=== PATIENT | male | born 1950 | race Caucasian/White ===

== ENCOUNTER → 2016-04-20 | Outpatient (CLI) | payer OTHER ==
--- NOTE | 2016-04-21 10:14 | ECHOF ---
Referral Reason:R07.89 Atypical Chest Pain MEASUREMENTS -------- HEIGHT: 170.2 cm WEIGHT: 117.9 kg BP: RVIDd: 2.6 cm (< 3.3) IVSd: 1.1 cm (0.6 - 1.1) LVIDd: 3.9 cm (3.9 - 5.3) LVPWd: 1.1 cm (0.6 - 1.1) IVSs: 1.2 cm LVIDs: 3.7 cm LVPWs: 1.7 cm Ao Diam: 3.3 cm (2.0 - 3.7) AV Cusp: 1.9 cm (1.5 - 2.6) LA Diam: 3.8 cm (2.7 - 3.8) MV EXCURSION: 15.249 mm (> 18.000) MV EF SLOPE: 53 mm/s (70 - 150) EPSS: 0.4 cm MV E Diony: 0.43 m/s MV DecT: 291 ms MV A Diony: 0.93 m/s MV E/A Ratio: 0.46 RAP: 5.00 mmHg RVSP: 34.52 mmHg FINDINGS -------- Sinus rhythm. This was a technically adequate study. There is mild concentric left ventricular hypertrophy. Overall left ventricular systolic function is low-normal with, an EF between 50 - 55 %. The right ventricle is normal in size. The right atrial size is normal. There is mild aortic valve sclerosis. There is no evidence of aortic regurgitation. Mild mitral annular calcification present. Mild mitral regurgitation is present. Mild tricuspid regurgitation present. There is no evidence of pulmonary hypertension. The right ventricular systolic pressure, as measured by Doppler, is 34.52mmHg. There is no pulmonic regurgitation present. There is no pericardial effusion. CONCLUSIONS -------- 1. There is mild concentric left ventricular hypertrophy. 2. There is no pericardial effusion. 3. Overall left ventricular systolic function is low-normal with, an EF between 50 - 55 %. 4. There is mild aortic valve sclerosis. 5. Mild mitral annular calcification present. 6. Mild mitral regurgitation is present. 7. Mild tricuspid regurgitation present. 8. There is no evidence of pulmonary hypertension. 9. The right ventricular systolic pressure, as measured by Doppler, is 34.52mmHg. 10. There is no pulmonic regurgitation present. MEMBERSHIP MANAGER: Sayda Vargas RDCS
== END | disposition home or self-care (01) ==
LOC: RADECHMAIN 14:26
PROVIDERS: ATTEND Family Medicine
DX: I08.3 Combined rheumatic disorders of mitral, aortic and tricuspid valves (principal)
CPT/HCPCS: 93306

== ENCOUNTER → 2017-05-12 | Outpatient (CLI) | payer OTHER ==
--- NOTE | 2017-05-12 12:57 | ECHOF ---
Referral Reason:R07.89 Atypical chest pain MEASUREMENTS -------- HEIGHT: 165.1 cm WEIGHT: 122.0 kg BP: RVIDd: 3.3 cm (< 3.3) IVSd: 1.4 cm (0.6 - 1.1) LVIDd: 4.2 cm (3.9 - 5.3) LVPWd: 1.7 cm (0.6 - 1.1) IVSs: 1.6 cm LVIDs: 2.8 cm LVPWs: 1.3 cm LAESV Index (A-L): 15.38 ml/m Ao Diam: 3.6 cm (2.0 - 3.7) AV Cusp: 2.1 cm (1.5 - 2.6) LA Diam: 4.0 cm (2.7 - 3.8) MV EXCURSION: 11.323 mm (> 18.000) MV EF SLOPE: 60 mm/s (70 - 150) EPSS: 0.6 cm MV E Diony: 0.38 m/s MV DecT: 278 ms MV A Diony: 0.90 m/s MV E/A Ratio: 0.43 RAP: 5.00 mmHg RVSP: 11.07 mmHg FINDINGS -------- Sinus rhythm. Morbid Obesity The left ventricular size is normal. There is moderate concentric left ventricular hypertrophy. O verall left ventricular systolic function is low-normal with, an EF between 50 - 55 %. The right ventricle is mildly enlarged. Normal LA size by volume 22+/-6 ml/m2. The right atrial size is normal. There is mild aortic valve sclerosis. Trace to mild aortic regurgitation. Mild mitral regurgitation is present. Mild tricuspid regurgitation present. There is no evidence of pulmonary hypertension. The right v entricular systolic pressure, as measured by Doppler, is 11.07mmHg. Trace/mild (physiologic) pulmonic regurgitation. The aortic root size is normal. Echo free space represents a pericardial fat pad. CONCLUSIONS -------- 1. The left ventricular size is normal. 2. There is moderate concentric left ventricular hypertrophy. 3. Overall left ventricular systolic function is low-normal with, an EF between 50 - 55 %. 4. There is mild aortic valve sclerosis. 5. Trace to mild aortic regurgitation. 6. Mild mitral regurgitation is present. 7. Mild tricuspid regurgitation present. 8. There is no evidence of pulmonary hypertension. 9. The right ventricular systolic pressure, as measured by Doppler, is 11.07mmHg. 10. Trace/mild (physiologic) pulmonic regurgitation. 11. The aortic root size is normal. 12. Echo free space represents a pericardial fat pad. MENHADEN VESSEL PILOT: Sayda Vargas RDCS
--- NOTE | 2017-05-12 13:55 | EST ---
EXERCISE STRESS DATE OF SERVICE: 05/12/2017 AGE: 66 SEX: Male HT: WT: 269 PROTOCOL: Hernesto. STAGE: III DURATION OF EXERCISE: 7 minutes HEART RATE REST: 86 BLOOD PRESSURE REST: 144/84 MAXIMUM HEART RATE ACHIEVED: 138 MAXIMUM BLOOD PRESSURE: 215/86. 85% MPHR: 133 100% MPHR: 156. METS: 8.5 INDICATIONS: Chest pain. CLINICAL INFORMATION: STRESS DATA: Pretesting physical examination showed a heart rate of 86, pressure is 144/84 mmHg. Baseline EKG showed sinus mechanism. The patient exercised on the treadmill according to Hernesto protocol for a total of 7 minute and achieved 8.5 METs. Max heart rate was 138, which is about 88% of maximum predicted heart rate. Maximum blood pressure was 215/86 mmHg. Clinically the patient did not have any symptoms and the EKG did not show any significant ST or T-wave abnormalities consistent with ischemia. CONCLUSION: 1. Good exercise capacity. 2. Normal EKG response to exercise. MMODL / IJN: [id number] /
== END | disposition home or self-care (01) ==
LOC: RADNMMAIN 08:59
PROVIDERS: ATTEND Family Medicine
DX: R07.89 Other chest pain (principal)
CPT/HCPCS: 93017; 93306

== ENCOUNTER → 2017-12-21 | Outpatient (CLI) | payer MEDICARE, OTHER ==
--- NOTE | 2017-12-22 07:10 | US ---
EXAMINATION TYPE: US thyroid st tissue head/neck DATE OF EXAM: 12/21/2017 COMPARISON: MRI cervical spine October 29, 2012 CLINICAL HISTORY: R22.1 Nodule left neck. Lump left neck for 2 weeks. Scanned left neck within patient's area of concern, multiple lymph nodes noted with largest = 2.0 x 0 .5 x 0.5cm Benign-appearing lymph nodes are seen at palpable abnormality in the left neck which correlates with 2013 MRI. No suspicious solid or cystic mass or worrisome fluid collection is identified on the image s saved. IMPRESSION: As above
== END | disposition home or self-care (01) ==
LOC: RADUSMAIN 15:52
PROVIDERS: ATTEND Family Medicine
DX: R22.1 Localized swelling, mass and lump, neck (principal)
CPT/HCPCS: 76536

== ENCOUNTER → 2018-08-13 | Outpatient (CLI) | payer MEDICARE, OTHER ==
[~2018-08-13] MED LIST: REGADENOSON 0.4 MG/5 ML SYRINGE IV ONE
--- NOTE | 2018-08-13 14:09 | NM ---
EXAMINATION TYPE: NM stress lexiscan cardiolite DATE OF EXAM: 08/13/2018 COMPARISON: NONE HISTORY: 67-year-old male with chest pain TECHNIQUE: After the intravenous administration of 10.0 mCi Tc 99m Sestamibi - Cardiolite resting SP ECT images acquired 45 minutes post injection. The patient received 0.4mg Lexiscan, 25.3 mCi Tc 99m Sestamibi - Stress images obtained [address] injection FINDINGS: Review of stress and rest SPECT images demonstrates decreased the basal inferior wall. Gated analysis shows the normal wall motion with an estimated left ventricular ejection fraction of 54 %. TID is c alculated at 1.14, upper limits of the normal range. IMPRESSION: 1. Fixed perfusion abnormality along the basal inferior wall could represent diaphragmatic attenuatio n or infarct. No definite scintigraphic evidence for reversible ischemia. 2. Estimated LVEF borderline to minimally diminished at 54%.
--- NOTE | 2018-08-13 19:44 | EST ---
EXERCISE STRESS DATE OF SERVICE: 08/13/2018 AGE: 67 SEX: Male HT: 5'6" WT: 260 pounds PROTOCOL: Lexiscan STAGE: DURATION OF EXERCISE: HEART RATE REST: 78 BLOOD PRESSURE REST: 172/100 MAXIMUM HEART RATE ACHIEVED: 96 MAXIMUM BLOOD PRESSURE: 212/120 85% MPHR: 100% MPHR: METS: INDICATIONS: Chest pain. RESULTS: Baseline heart rate 70 beats per minute. Baseline blood pressure 172/100 mmHg. The patient's baseline 12-lead ECG shows normal sinus rhythm with poor R-wave progression, normal ST segments. Patient received Lexiscan infusion per protocol heart rate remained in the 80s and 90s. Blood pressure remained elevated through the procedure. There was no ECG evidence for ischemia. No arrhythmias were noted. Nuclear portion of the stress test will be reported separately. IMPRESSION: No ECG evidence for ischemia and no arrhythmias during Lexiscan infusion. MMODL / IJN: [id number] /
== END | disposition home or self-care (01) ==
LOC: RADNMMAIN 07:36
PROVIDERS: ATTEND Family Medicine
DX: R94.39 Abnormal result of other cardiovascular function study (principal); R07.9 Chest pain, unspecified; I10 Essential (primary) hypertension
CPT/HCPCS: 93017; 78452; A9500; J2785

== ENCOUNTER → 2018-09-11 | Outpatient (CLI) | payer MEDICARE, OTHER ==
--- NOTE | 2018-09-11 13:06 | ECHOF ---
Referral Reason:I10 hypertention MEASUREMENTS -------- HEIGHT: 167.6 cm WEIGHT: 117.9 kg BP: RVIDd: 3.8 cm (< 3.3) IVSd: 1.8 cm (0.6 - 1.1) LVIDd: 3.3 cm (3.9 - 5.3) LVPWd: 1.6 cm (0.6 - 1.1) IVSs: 1.7 cm LVIDs: 2.3 cm LVPWs: 1.9 cm LAESV Index (A-L): 21.86 ml/m Ao Diam: 2.4 cm (2.0 - 3.7) AV Cusp: 1.7 cm (1.5 - 2.6) LA Diam: 4.1 cm (2.7 - 3.8) EPSS: 0.5 cm MV E Diony: 0.77 m/s MV DecT: 181 ms MV A Diony: 1.16 m/s MV E/A Ratio: 0.66 AV maxP.19 mmHg AV meanP.34 mmHg AR PHT: 325 ms RAP: 5.00 mmHg RVSP: 35.40 mmHg MV EF SLOPE: 39.11 mm/s (70 - 150) MV EXCURSION: 1.47 cm (> 18.000) FINDINGS -------- Sinus rhythm. This was a technically difficult study with suboptimal views. The left ventricular size is normal. There is moderate concentric left ventricular hypertrophy. O verall left ventricular systolic function is normal with, an EF between 55 - 60 %. The right ventricle is mildly enlarged. Left atrium is normal size by volume. The right atrial size is normal. Lumason used Interatrial and interventricular septum intact. The aortic valve is trileaflet and appears structurally normal. Trace amount of aortic regurgitatio n. The mitral valve is normal. Mild mitral regurgitation is present. Mild tricuspid regurgitation present. There is mild pulmonary hypertension. The right ventricular systolic pressure, as measured by Doppler, is 35.40mmHg. There is no pulmonic regurgitation present. The aortic root size is normal. The inferior vena cava was not well visualized. Echo free space may represent effusion or a pericardial fat pad. CONCLUSIONS -------- 1. Sinus rhythm. 2. This was a technically difficult study with suboptimal views. 3. The left ventricular size is normal. 4. There is moderate concentric left ventricular hypertrophy. 5. Overall left ventricular systolic function is normal with, an EF between 55 - 60 %. 6. The right ventricle is mildly enlarged. 7. Left atrium is normal size by volume. 8. The right atrial size is normal. 9. Lumason used 10. Interatrial and interventricular septum intact. 11. The aortic valve is trileaflet and appears structurally normal. 12. Trace amount of aortic regurgitation. 13. The mitral valve is normal. 14. Mild mitral regurgitation is present. 15. Mild tricuspid regurgitation present. 16. There is mild pulmonary hypertension. 17. The right ventricular systolic pressure, as measured by Doppler, is 35.40mmHg. 18. There is no pulmonic regurgitation present. 19. The aortic root size is normal. 20. The inferior vena cava was not well visualized. 21. Echo free space may represent effusion or a pericardial fat pad. DIGITAL MEDIA ASSOCIATE: Cecelia Davison RDCS
== END ==
LOC: RADECHMAIN 11:04
PROVIDERS: ATTEND Family Medicine
DX: I11.9 Hypertensive heart disease without heart failure (principal); I08.1 Rheumatic disorders of both mitral and tricuspid valves; I27.20 Pulmonary hypertension, unspecified
CPT/HCPCS: C8929; Q9950; 93306

== ENCOUNTER 2018-11-08 12:48 | Emergency (ER) | payer MEDICARE, OTHER ==
[2018-11-08 12:54] VITALS: RESP 18
--- NOTE | 2018-11-08 13:38 | XR ---
EXAMINATION TYPE: XR hand complete RT, XR forearm RT, XR elbow complete RT DATE OF EXAM: 11/08/2018 CLINICAL HISTORY: Right upper extremity pain with clinical history of gout. TECHNIQUE: Frontal, lateral and oblique images of the right hand are obtained. 3 views of the right elbow and 2 views of the right forearm are also obtained. COMPARISON: None. FINDINGS: There is no acute fracture/dislocation evident in the right hand, elbow, or forearm. Joint space narrowing and bony proliferative change are seen of the first carpometacarpal joint. Carp al carpal interspaces are maintained. Small osseous erosions of the distal aspects of the proximal ph alanges and middle phalanges are seen of the second through fourth digits indicative of gouty arthrop athy. Punctate calcification of the triangle fibrocartilage is noted. Lucency within the ulnar styloi d is well marginated with a narrow zone of transition appearing as a benign osseous lesion. No joint effusion is evident. There is soft tissue swelling over the dorsal humerus and proximal fore arm with epicenter at the olecranon. Olecranon bursitis is possible. Mild bony productive change the elbow joint relating to mild arthropathy. IMPRESSION: 1. Radiographic findings suggesting olecranon bursitis, which can be seen in gout in keeping with thi s patient's history. 2. Mild arthropathy of the right hand and elbow with small multifocal osseous erosions in the right h and also in keeping with this patient's history of gout.
[2018-11-08] MEDS ORDERED: cefTRIAXone 1,000 MG VIAL (IM USE) IM STA (13:55)
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
--- NOTE | 2018-11-08 15:30 | US ---
EXAMINATION TYPE: US venous doppler duplex UE RT DATE OF EXAM: 11/08/2018 COMPARISON: NONE CLINICAL HISTORY: Pain. Pain gout right arm. SIDE PERFORMED: Right Right Arm: Negative for DVT Grayscale, color doppler, spectral doppler imaging performed of the deep veins of the right upper ext remity. There is normal flow, compressibility and vascular waveforms. IMPRESSION: No evidence of acute deep or superficial venous thrombosis in the right upper extremity. Mild subcutaneous edema at the level of basilic vein is noted.
[2018-11-08 15:35] LABS: Basophils % (A) 0 %; Eosinophils # (A) 0.1 k/uL (0-0.7); Eosinophils % (A) 1 %; HCT 43.9 % (39.0-53.0); Lymphocytes # (A) 1.2 k/uL (1.0-4.8); Lymphocytes % (A) 15 %; MCH 29.8 pg (25.0-35.0); MCHC 34.2 g/dL (31.0-37.0); MCV 87.1 fL (80.0-100.0); Mean Platelet Volume 8.2; Monocytes % (A) 11 %; Neutrophils % (A) 70 %; Platelet Count 182 k/uL (150-450); RBC 5.04 m/uL (4.30-5.90); WBC 8.5 k/uL (3.8-10.6)
[2018-11-08 15:44] LABS: Albumin 4.4 g/dL (3.5-5.0); Calcium 9.6 mg/dL (8.4-10.2); Potassium 4.2 mmol/L (3.5-5.1); Total Bilirubin 0.6 mg/dL (0.2-1.3); Total Protein 7.4 g/dL (6.3-8.2)
[2018-11-08] MEDS ORDERED: CEPHALEXIN 500MG STARTER PACK 4 CAP BTL PO STA (15:54)
[2018-11-08] MEDS ORDERED: SODIUM CHLORIDE 0.9% 1,000 ML IV STA (15:54)
[2018-11-08 16:10] VITALS: BP 148/76; PULSE 87; TEMP 98
== END 2018-11-08 17:12 | disposition home or self-care (01) ==
LOC: EC 12:48
DX: L03.113 Cellulitis of right upper limb (principal); M10.9 Gout, unspecified; Z87.828 Personal history of other (healed) physical injury and trauma; Z98.890 Other specified postprocedural states; Z79.899 Other long term (current) drug therapy
CPT/HCPCS: 36415; 80053; 85025; 73080; 73090; 73130; 93971; 99284; 96360; 96372; J0696

== ENCOUNTER → 2018-12-28 | Outpatient (CLI) | payer MEDICARE, OTHER ==
--- NOTE | 2018-12-28 12:20 | XR ---
EXAMINATION TYPE: XR ankle complete LT DATE OF EXAM: 12/28/2018 CLINICAL HISTORY: Left ankle pain for one month. History of gout TECHNIQUE: Frontal, lateral and oblique images of the left ankle are obtained. COMPARISON: None. FINDINGS: There is no acute fracture/dislocation evident in the left ankle. Small plantar and Achill es enthesophytes are seen. There is calcification of the plantar fascia. Mild soft tissue swelling is seen of the ankle joint.. The overlying soft tissue appears unremarkable. No osseous erosions are s een. IMPRESSION: Mild soft tissue swelling of the ankle joint no acute fracture or dislocation in the left ankle. Small plantar and Achilles heel spurs.
== END ==
LOC: RADXRMAIN 11:06
PROVIDERS: ATTEND Family Medicine
DX: M25.472 Effusion, left ankle (principal); M77.32 Calcaneal spur, left foot
CPT/HCPCS: 81050; 84560

== ENCOUNTER → 2020-06-03 | Outpatient (CLI) | payer MEDICARE, OTHER ==
--- NOTE | 2020-06-03 10:46 | ECHOF ---
Referral Reason:R07.9 atypical chest pain MEASUREMENTS -------- HEIGHT: 167.6 cm WEIGHT: 119.7 kg BP: RVIDd: 3.9 cm (< 3.3) IVSd: 1.7 cm (0.6 - 1.1) LVIDd: 3.3 cm (3.9 - 5.3) LVPWd: 1.8 cm (0.6 - 1.1) IVSs: 1.9 cm LVIDs: 1.9 cm LVPWs: 2.4 cm LAESV Index (A-L): 18.68 ml/m Ao Diam: 2.8 cm (2.0 - 3.7) AV Cusp: 1.8 cm (1.5 - 2.6) MV EXCURSION: 13.275 mm (> 18.000) MV EF SLOPE: 32 mm/s (70 - 150) EPSS: 0.6 cm MV E Diony: 0.64 m/s MV DecT: 209 ms MV A Diony: 1.13 m/s MV E/A Ratio: 0.56 AR PHT: 577 ms RAP: 5.00 mmHg RVSP: 24.48 mmHg FINDINGS -------- Sinus rhythm. This was a technically adequate study. The left ventricular size is normal. There is moderate concentric left ventricular hypertrophy. O verall left ventricular systolic function is normal with, an EF between 55 - 60 %. The diastolic fi lling pattern is normal for the age of the patient 14.63. The right ventricle is mild to moderately enlarged. Normal LA size by volume 22+/-6 ml/m2. The right atrial size is normal. Interatrial and interventricular septum intact. There is mild aortic regurgitation. There is no evidence of aortic stenosis. No mitral regurgitation. Mild tricuspid regurgitation present. There is no evidence of pulmonary hypertension. The right v entricular systolic pressure, as measured by Doppler, is 24.48mmHg. There is no pulmonic regurgitation present. The aortic root size is normal. IVC Not well visulized. There is no pericardial effusion. CONCLUSIONS -------- 1. The left ventricular size is normal. 2. There is moderate concentric left ventricular hypertrophy. 3. Overall left ventricular systolic function is normal with, an EF between 55 - 60 %. 4. The diastolic filling pattern is normal for the age of the patient 14.63 5. The right ventricle is mild to moderately enlarged. 6. There is mild aortic regurgitation. 7. Mild tricuspid regurgitation present. HANDLE ROUNDER OPERATOR: Cecelia Davison RDCS
== END | disposition home or self-care (01) ==
LOC: RADECHMAIN 08:20
PROVIDERS: ATTEND Family Medicine
DX: I08.2 Rheumatic disorders of both aortic and tricuspid valves (principal)
CPT/HCPCS: 93306

== ENCOUNTER 2020-09-17 13:23 | Emergency (ER) | payer MEDICARE, OTHER ==
[2020-09-17] MEDS ORDERED: KETOROLAC 15 MG/ML 1 ML VIAL IVP STA (13:28)
[2020-09-17] MEDS ORDERED: ORPHENADRINE 30 MG/ML 2 ML VIAL IVP STA (13:29)
[2020-09-17 13:50] VITALS: TEMP 97.9
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
[2020-09-17 14:39] LABS: Potassium 4.3 mmol/L (3.5-5.1)
[2020-09-17 14:40] LABS: Albumin 4.2 g/dL (3.5-5.0); Calcium 9.4 mg/dL (8.4-10.2); Magnesium 1.8 mg/dL (1.6-2.3); Total Bilirubin 0.6 mg/dL (0.2-1.3); Total Protein 7.3 g/dL (6.3-8.2)
[2020-09-17 14:47] LABS: Basophils % (A) 0 %; Eosinophils # (A) 0.1 k/uL (0-0.7); Eosinophils % (A) 1 %; HCT 43.9 % (39.0-53.0); HGB 15.4 gm/dL (13.0-17.5); Lymphocytes # (A) 1.6 k/uL (1.0-4.8); Lymphocytes % (A) 21 %; MCH 30.3 pg (25.0-35.0); MCHC 35.1 g/dL (31.0-37.0); MCV 86.2 fL (80.0-100.0); Mean Platelet Volume 8.3; Monocytes # (A) 0.7 k/uL (0-1.0); Monocytes % (A) 10 %; Neutrophils # (A) 4.8 k/uL (1.3-7.7); Neutrophils % (A) 66 %; Platelet Count 195 k/uL (150-450); RDW 13.6 % (11.5-15.5); WBC 7.3 k/uL (3.8-10.6)
[2020-09-17 14:54] LABS: D-Dimer 0.54 mg/L FEU (<0.60); INR 0.9 (<1.2); Partial Thromboplastin Time 23.6 sec (22.0-30.0)
--- NOTE | 2020-09-17 14:56 | XR ---
EXAMINATION TYPE: XR chest 2V DATE OF EXAM: 09/17/2020 COMPARISON: 10/07/2012 HISTORY: Chest pain TECHNIQUE: Frontal and lateral views of the chest are obtained. FINDINGS: Heart size is within normal limits. Multiple overlying leads. No pleural effusion, focal c onsolidation or pneumothorax. Cervical spinal hardware. IMPRESSION: 1. No acute pulmonary disease.
[2020-09-17 15:23] VITALS: BP 157/80
[2020-09-17 16:42] VITALS: PULSE 82; RESP 18
== END 2020-09-17 16:40 | disposition home or self-care (01) ==
LOC: EC 13:23
DX: R07.89 Other chest pain (principal); M25.512 Pain in left shoulder; M19.90 Unspecified osteoarthritis, unspecified site
CPT/HCPCS: 36415; 93005; 85379; 83880; 80053; 82550; 83690; 83735; 84484; 85025; 85610; 85730; 71046; 99285; 96374; 96375; J2360; J1885

== ENCOUNTER 2021-03-26 08:12 | Day surgery (SDC) | payer MEDICARE, OTHER ==
[2021-03-25 09:33] VITALS: BMI 42.7
[~2021-03-26 08:12] MED LIST changes: +LACTATED RINGERS 1,000 ML IV SCH; -REGADENOSON 0.4 MG/5 ML SYRINGE IV ONE
[2021-03-26 09:10] VITALS: TEMP 98.5
[2021-03-26] MEDS ORDERED: LIDOCAINE 1% (10MG/ML) FOR IV START INTRADERMA ONE (09:15)
[2021-03-26] MEDS ORDERED: PROPOFOL 10 MG/ML 20 ML VIAL IV ONE (09:42)
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
--- NOTE | 2021-03-26 10:01 | P.PCN ---
Date of Procedure: 03/26/21 Preoperative Diagnosis: Change in bowels Postoperative Diagnosis: Sigmoid colon polyp Diverticulosis Procedure(s) Performed: Colonoscopy with hot snare polypectomy Anesthesia: MAC Surgeon: Marcelino Mahan Pathology: other (Sigmoid colon polyp) Condition: stable Disposition: same day Indications for Procedure: 70-year-old male presents for colonoscopy secondary to change in bowels. Denies any blood in his stool. Denies family history of colon cancer. Last colonoscopy was many years ago. Risks, benefits and alternatives were provided to the patient. He did Provide consent. Operative Findings: Sigmoid colon polyp Diverticulosis Description of Procedure: The patient was brought into the endoscopy suite and placed in left lateral decubitus position. Adequate sedation was achieved using conscious sedation. A digital rectal exam was performed and internal hemorrhoids were palpated. An endoscope was then placed in the rectum and advanced to the cecum as identified by landmarks including the appendiceal orifice and the ileocecal valve. The prep was good. The colonoscope was slowly withdrawn, examining for any mucosal antibiotics. The cecum, ascending, transverse, descending and sigmoid colon were visualized adequately. There were no large neoplastic lesions noted throughout the colon. Small polyp was noted in the sigmoid colon. This was removed with hot snare polypectomy. Hemostasis was maintained. Moderate amount of diverticulosis was noted in the descending and sigmoid colon. Retroflexion was performed in the rectum and internal hemorrhoids were visible. Excess air was removed from the colonoscope withdrawn and the procedure terminated. The patient was then transferred to the recovery unit in stable condition. Repeat colonoscopy should be performed in 5 years.
[2021-03-26 10:27] VITALS: BP 134/78; PULSE 78; RESP 18
== END 2021-03-26 10:35 | disposition home or self-care (01) ==
LOC: ORWHC2ENDO 08:12
PROVIDERS: ATTEND Surgery
DX: D12.5 Benign neoplasm of sigmoid colon (principal); K57.90 Diverticulosis of intestine, part unspecified, without perforation or abscess without bleeding
CPT/HCPCS: 45385; 88305; J2704

== ENCOUNTER → 2021-06-16 | Outpatient (CLI) | payer MEDICARE, OTHER ==
--- NOTE | 2021-06-16 13:45 | MR ---
EXAMINATION TYPE: MR Prostate wo/w con DATE OF EXAM: 06/16/2021 COMPARISON: None. IMAGE QUALITY: . INDICATION: Prostate ca, difficulty urinating PSA: 12.60 ng/ml on April 06, 2021 Recent Biopsy and Date: May 13, 2021 Pathology Report (If Applicable): Right lateral base Adenocarcinoma 4+3 = 7, 2 mm tissue 33% of volum e. Right base adenocarcinoma Monroe grade 4+3 = 7, 4 mm length, 57% volume. Right lateral mid adenoc arcinoma Tomi grade 4+3 = 7 approximately 4 mm length 57% tissue volume. Right mid adenocarcinoma grade 4+3 = 7 mm length 50% tissue. Right lateral apex atypia. Right apex rare focus of adenocarcinom a. Left lateral base adenocarcinoma Monroe grade 3+4 = 7 2 mm tissue 25% volume. Left base adenocarcino ma Monroe grade 3+4 = 7 approximately 5 mm soft tissue 71% volume with perineural invasion. Left lat eral mid adenocarcinoma Monroe grade 4+3 = 7 9 mm tissue length 100% volume. Left mid core biopsy ad enocarcinoma Tomi grade 4+3 = 7-8 mm of tissue 100% volume. Left apex adenocarcinoma grade 4+3 = 7 mm of tissue 86% volume. TECHNIQUE: Examination was performed using a 3T MRI without an endorectal coil. Multiparametric imaging was perf ormed with T2 mutliplanar sequences, axial diffusion weighted imaging and dynamic contrast enhanced i maging, utilizing 12 mL intravenous Gadavist gadolinium contrast. FINDINGS: PROSTATE VOLUME: 4.2 cm SI x 3.9 cm AP x 3.6 cm LR Vol= 30.88 cc Predicted PSA equals 3.71 PSA DENSITY: 0.41 ng/ml/cc Prostate gland measures upper limits of normal. There is thinning of the peripheral zone which has mi nimal visualized tissue along the apex, slightly lobulated or suspicious contour latera to axial imag e 20 shows diminished signal and 80 cc mapping with slight increased signal on diffusion-weighted isaias ging for reference image 252 series 704. PIRADS 3. Transitional zone shows diffuse abnormal diminished T2 signal throughout entire right aspect from bas e to apex without definitive measurable focal lesion. At least PI-RADS 3 Moderate lead distended bladder without abnormal wall thickening or trabeculation is partially imaged . Hyperdense tissue in the base favors lobulated prostate extension axial image 26 anteriorly.. Semin al vesicles show overall diminished signal and bulkiness. No definitive abnormal adjacent adenopathy. Visualized osseous structures are intact. No suspicious bowel dilatation is seen. No concerning pelvi c fluid collection. No groin hernia or adenopathy is seen. IMPRESSION: Prostate gland measures upper limits of normal. Diffuse abnormal prostate with suspicious lobulated low dense tissue into the seminal vesicles and regular margins of the prostate capsule par ticularly left mid to apical segments. At least overall PIRADS 3. Highest Assessment Category: 3 MRI Stage: T1c N0 M0 based on review of pelvic images. False negative rates for MRI range from 5-20% depending on risk profile. Assessment Categories: 1 ? Very low (clinically significant cancer is highly unlikely to be present) 2 ? Low (clinically significant cancer is unlikely to be present) 3 ? Intermediate (the presence of clinically significant cancer is equivocal) 4 ? High (clinically significant cancer is likely to be present) 5 ? Very high (clinically significant cancer is highly likely to be present)
== END | disposition home or self-care (01) ==
LOC: RADMRIMAIN 07:30
PROVIDERS: ATTEND Urology
DX: C61 Malignant neoplasm of prostate (principal)
CPT/HCPCS: 72197; A9585

== ENCOUNTER → 2021-06-30 | Outpatient (CLI) | payer MEDICARE, OTHER ==
[2021-06-30 19:03] LABS: Basophils # (A) 0.03 X 10*3/uL (0.00-0.10); Basophils % (A) 0.4 %; Eosinophils # (A) 0.11 X 10*3/uL (0.04-0.35); Eosinophils % (A) 1.4 %; HCT 43.3 % (39.6-50.0); HGB 13.6 g/dL (13.0-17.0); Immature Grans, Automated 0.5 %; Lymphocytes # (A) 1.33 X 10*3/uL (0.90-5.00); Lymphocytes % (A) 17.5 %; MCH 29.1 pg (27.0-32.0); MCHC 31.4 g/dL (32.0-37.0); MCV 92.7 fL (80.0-97.0); Mean Platelet Volume 10.9 fL (9.5-12.2); Monocytes # (A) 0.91 X 10*3/uL (0.20-1.00); NRBC Per 100 WBC 0 /100 WBCS (0.0-0.0); Neutrophils # (A) 5.19 X 10*3/uL (1.80-7.70); Neutrophils % (A) 68.2 %; Platelet Count 227 X 10*3/uL (140-440); RBC 4.67 X 10*6/uL (4.40-5.60); RDW 14.3 % (11.5-14.5); WBC 7.61 X 10*3/uL (4.50-10.00)
[2021-07-01 00:26] LABS: ALT 23 U/L (10-49); AST 21 U/L (14-35); African American GFR (CKD) 24.7 (60.0-200.0); Albumin 4.1 g/dL (3.8-4.9); Albumin/Globulin Ratio 1.16 (1.60-3.17); Alkaline Phosphatase 107 U/L (41-126); Bilirubin, Conjugated <0.20 mg/dL (0.20-0.40); Globulin 3.6 g/dL (1.6-3.3); Non-African American GFR(CKD) 21.3 (60.0-200.0); Total Protein 7.7 g/dL (6.2-8.2); Uric Acid 6.4 mg/dL (3.7-8.7)
== END | disposition home or self-care (01) ==
LOC: LABWHC1 09:02
PROVIDERS: ATTEND Student in an Organized Health Care Education/Training Program
DX: Z51.81 Encounter for therapeutic drug level monitoring (principal); M1A.9XX1 Chronic gout, unspecified, with tophus (tophi)
CPT/HCPCS: 36415; 80076; 82565; 84550; 85025

== ENCOUNTER → 2022-02-23 | Outpatient (CLI) | payer MEDICARE, OTHER ==
[2022-02-23 15:15] LABS: Basophils # (A) 0.02 X 10*3/uL (0.00-0.10); Basophils % (A) 0.4 %; Eosinophils # (A) 0.07 X 10*3/uL (0.04-0.35); Eosinophils % (A) 1.3 %; HCT 41.9 % (39.6-50.0); HGB 13.9 g/dL (13.0-17.0); Immature Grans, Automated 0.6 %; Lymphocytes # (A) 1.29 X 10*3/uL (0.90-5.00); Lymphocytes % (A) 23.9 %; MCH 30.6 pg (27.0-32.0); MCHC 33.2 g/dL (32.0-37.0); MCV 92.3 fL (80.0-97.0); Mean Platelet Volume 11.1 fL (9.5-12.2); Monocytes # (A) 0.72 X 10*3/uL (0.20-1.00); Monocytes % (A) 13.3 %; NRBC Per 100 WBC 0 /100 WBCS (0.0-0.0); Neutrophils # (A) 3.27 X 10*3/uL (1.80-7.70); Neutrophils % (A) 60.5 %; Platelet Count 192 X 10*3/uL (140-440); RBC 4.54 X 10*6/uL (4.40-5.60); RDW 13.5 % (11.5-14.5)
[2022-02-23 15:17] LABS: ALT 26 U/L (10-49); AST 20 U/L (14-35); African American GFR (CKD) 64.5 (60.0-200.0); Albumin 4.6 g/dL (3.8-4.9); Albumin/Globulin Ratio 1.48 (1.60-3.17); Alkaline Phosphatase 74 U/L (41-126); Bilirubin, Conjugated <0.20 mg/dL (0.20-0.40); Globulin 3.1 g/dL (1.6-3.3); Non-African American GFR(CKD) 55.7 (60.0-200.0); Total Protein 7.7 g/dL (6.2-8.2); Uric Acid 3.3 mg/dL (3.7-8.7)
== END | disposition home or self-care (01) ==
LOC: LABWHC1 09:37
PROVIDERS: ATTEND Student in an Organized Health Care Education/Training Program
DX: Z51.81 Encounter for therapeutic drug level monitoring (principal); M1A.9XX1 Chronic gout, unspecified, with tophus (tophi)
CPT/HCPCS: 36415; 80076; 82565; 84550; 85025

== ENCOUNTER → 2023-01-23 | Outpatient (CLI) | payer MEDICARE, OTHER ==
[2023-01-23 15:43] LABS: Basophils # (A) 0.02 X 10*3/uL (0.00-0.10); Basophils % (A) 0.3 %; Eosinophils # (A) 0.07 X 10*3/uL (0.04-0.35); Eosinophils % (A) 1.2 %; HCT 40.4 % (39.6-50.0); HGB 13.7 d/dL (13.0-17.0); Lymphocytes # (A) 1.12 X 10*3/uL (0.90-5.00); Lymphocytes % (A) 18.5 %; MCH 30.5 pg (27.0-32.0); MCHC 33.9 d/dL (32.0-37.0); Mean Platelet Volume 10.8 FL (9.5-12.2); Monocytes # (A) 0.72 X 10*3/uL (0.20-1.00); Monocytes % (A) 11.9 %; NRBC Per 100 WBC 0 X 10*3/uL (0.00-0.01); Neutrophils # (A) 4.03 X 10*3/uL (1.80-7.70); Neutrophils % (A) 66.8 %; Platelet Count 185 X 10*3/uL (140-440); RBC 4.49 X 10*6/uL (4.40-5.60); RDW 13.8 % (11.5-14.5); WBC 6.04 X 10*3/uL (4.50-10.00)
[2023-01-23 16:24] LABS: ALT 27 U/L (10-49); AST 26 U/L (14-35); Albumin 4.2 d/dL (3.8-4.9); Albumin/Globulin Ratio 1.35 Ratio (1.60-3.17); Alkaline Phosphatase 71 U/L (41-126); Bilirubin, Conjugated <0.20 mg/dL (0.20-0.40); Bilirubin,Unconjugated >0.20 mg/dL (0.20-1.00); Globulin 3.1 d/dL (1.6-3.3); Total Bilirubin 0.4 mg/dL (0.3-1.2); Total Protein 7.3 d/dL (6.2-8.2); Uric Acid 3.4 mg/dL (3.7-8.7)
== END | disposition home or self-care (01) ==
LOC: LABWHC1 09:34
PROVIDERS: ATTEND Student in an Organized Health Care Education/Training Program
DX: Z51.81 Encounter for therapeutic drug level monitoring (principal); M1A.9XX1 Chronic gout, unspecified, with tophus (tophi); Z79.899 Other long term (current) drug therapy
CPT/HCPCS: 36415; 80076; 82565; 84550; 85025

== ENCOUNTER → 2023-05-22 | Outpatient (CLI) | payer MEDICARE, OTHER ==
[2023-05-22 15:42] LABS: ALT 33 U/L (10-49); AST 32 U/L (14-35); Albumin 4.4 g/dL (3.8-4.9); Albumin/Globulin Ratio 1.42 Ratio (1.60-3.17); Alkaline Phosphatase 66 U/L (41-126); Bilirubin, Conjugated <0.20 mg/dL (0.20-0.40); Bilirubin,Unconjugated >0.10 mg/dL (0.20-1.00); Globulin 3.1 g/dL (1.6-3.3); Total Bilirubin 0.3 mg/dL (0.3-1.2); Total Protein 7.5 g/dL (6.2-8.2); Uric Acid 3.1 mg/dL (3.7-8.7)
[2023-05-22 16:04] LABS: Basophils # (A) 0.03 X 10*3/uL (0.00-0.10); Basophils % (A) 0.5 %; Eosinophils % (A) 1.6 %; HCT 41.5 % (39.6-50.0); HGB 13.8 g/dL (13.0-17.0); Lymphocytes # (A) 1.51 X 10*3/uL (0.90-5.00); Lymphocytes % (A) 24.8 %; MCH 30.2 pg (27.0-32.0); MCHC 33.3 g/dL (32.0-37.0); MCV 90.8 FL (80.0-97.0); Mean Platelet Volume 11.3 FL (9.5-12.2); Monocytes # (A) 0.59 X 10*3/uL (0.20-1.00); Monocytes % (A) 9.7 %; NRBC Per 100 WBC 0 X 10*3/uL (0.00-0.01); Neutrophils % (A) 62.6 %; Platelet Count 198 X 10*3/uL (140-440); RBC 4.57 X 10*6/uL (4.40-5.60); RDW 13.6 % (11.5-14.5); WBC 6.08 X 10*3/uL (4.50-10.00)
== END | disposition home or self-care (01) ==
LOC: LABWHC1 11:57
PROVIDERS: ATTEND Student in an Organized Health Care Education/Training Program
DX: Z51.81 Encounter for therapeutic drug level monitoring (principal); M1A.9XX1 Chronic gout, unspecified, with tophus (tophi); Z79.899 Other long term (current) drug therapy
CPT/HCPCS: 36415; 80076; 82565; 84550; 85025

== ENCOUNTER → 2023-06-15 | Outpatient (CLI) | payer MEDICARE, OTHER ==
[2023-06-15 16:01] LABS: ALT 39 U/L (10-49); AST 31 U/L (14-35); Albumin 4.5 g/dL (3.8-4.9); Alkaline Phosphatase 65 U/L (41-126); Bilirubin, Conjugated <0.20 mg/dL (0.20-0.40); Bilirubin,Unconjugated >0.20 mg/dL (0.20-1.00); Total Bilirubin 0.4 mg/dL (0.3-1.2); Total Protein 7.5 g/dL (6.2-8.2); Uric Acid 4.2 mg/dL (3.7-8.7)
[2023-06-15 16:13] LABS: Basophils # (A) 0.03 X 10*3/uL (0.00-0.10); Basophils % (A) 0.5 %; Eosinophils # (A) 0.07 X 10*3/uL (0.04-0.35); Eosinophils % (A) 1.3 %; HCT 40.8 % (39.6-50.0); HGB 13.7 g/dL (13.0-17.0); Lymphocytes # (A) 1.25 X 10*3/uL (0.90-5.00); Lymphocytes % (A) 22.6 %; MCH 30.4 pg (27.0-32.0); MCHC 33.6 g/dL (32.0-37.0); MCV 90.7 FL (80.0-97.0); Mean Platelet Volume 11.1 FL (9.5-12.2); Monocytes # (A) 0.59 X 10*3/uL (0.20-1.00); Monocytes % (A) 10.7 %; NRBC Per 100 WBC 0 X 10*3/uL (0.00-0.01); Neutrophils # (A) 3.54 X 10*3/uL (1.80-7.70); Platelet Count 197 X 10*3/uL (140-440); RDW 13.9 % (11.5-14.5); WBC 5.53 X 10*3/uL (4.50-10.00)
== END | disposition home or self-care (01) ==
LOC: LABWHC1 10:17
PROVIDERS: ATTEND Student in an Organized Health Care Education/Training Program
DX: Z51.81 Encounter for therapeutic drug level monitoring (principal); M1A.9XX1 Chronic gout, unspecified, with tophus (tophi); Z79.899 Other long term (current) drug therapy
CPT/HCPCS: 36415; 80076; 82565; 84550; 85025

== ENCOUNTER → 2023-09-13 | Outpatient (CLI) | payer MEDICARE ==
[2023-09-13 14:40] LABS: Basophils # (A) 0.03 X 10*3/uL (0.00-0.10); Basophils % (A) 0.6 %; Eosinophils # (A) 0.08 X 10*3/uL (0.04-0.35); Eosinophils % (A) 1.6 %; HCT 39.5 % (39.6-50.0); HGB 13.2 g/dL (13.0-17.0); Lymphocytes # (A) 1.23 X 10*3/uL (0.90-5.00); Lymphocytes % (A) 24.2 %; MCH 30.3 pg (27.0-32.0); MCHC 33.4 g/dL (32.0-37.0); MCV 90.8 FL (80.0-97.0); Mean Platelet Volume 10.7 FL (9.5-12.2); Monocytes # (A) 0.54 X 10*3/uL (0.20-1.00); Monocytes % (A) 10.6 %; NRBC Per 100 WBC 0 X 10*3/uL (0.00-0.01); Neutrophils # (A) 3.14 X 10*3/uL (1.80-7.70); Neutrophils % (A) 61.8 %; Platelet Count 167 X 10*3/uL (140-440); RBC 4.35 X 10*6/uL (4.40-5.60); RDW 13.6 % (11.5-14.5); WBC 5.08 X 10*3/uL (4.50-10.00)
[2023-09-13 14:59] LABS: Uric Acid 4.2 mg/dL (3.7-8.7)
[2023-09-13 15:18] LABS: ALT 27 U/L (10-49); AST 26 U/L (14-35); Albumin 4.2 g/dL (3.8-4.9); Albumin/Globulin Ratio 1.56 Ratio (1.60-3.17); Alkaline Phosphatase 62 U/L (41-126); Bilirubin, Conjugated <0.20 mg/dL (0.20-0.40); Bilirubin,Unconjugated >0.10 mg/dL (0.20-1.00); Globulin 2.7 g/dL (1.6-3.3); Total Bilirubin 0.3 mg/dL (0.3-1.2); Total Protein 6.9 g/dL (6.2-8.2)
== END | disposition home or self-care (01) ==
LOC: LABWHC1 09:20
PROVIDERS: ATTEND Student in an Organized Health Care Education/Training Program
DX: Z51.81 Encounter for therapeutic drug level monitoring (principal); M1A.9XX1 Chronic gout, unspecified, with tophus (tophi); Z79.899 Other long term (current) drug therapy
CPT/HCPCS: 36415; 80076; 82565; 84550; 85025